=== PATIENT | male | born 1995 ===

== ENCOUNTER 2017-03-01 11:13 | Emergency (ER) | payer OTHER ==
[2017-03-01 11:20] VITALS: BMI 25.8
[2017-03-01 11:23] VITALS: TEMP 98.2; O2SAT 100
--- NOTE | 2017-03-01 11:35 | ED PDOC ---
Arrival/HPI - General Chief Complaint: Abnormal Skin Integrity Time Seen by Provider: 03/01/17 11:30 Historian: Patient - History of Present Illness Narrative History of Present Illness (Text): 03/01/17 11:32 21-year-old male presents today with a one-week history of right axillary abscess. Patient was seen by the primary care physician and was given cephalexin and a cleansed a few days ago. Patient followed up with the primary care physician again today and then was given a referral to a functional tester. When the functional tester did not take the patient's insurance he was advised to come to the emergency room for evaluation. Patient states he has prior history of abscess. Patient states last time it was in the left axilla. He denies fevers or chills. No medications have been taken for pain at home. He denies numbness weakness or tingling in the extremity. Patient describes the pain as 8 out of 10 throbbing pain localized to the large abscess. No other complaints Past Medical History - Provider Review Nursing Documentation Reviewed: Yes - Travel History Have you recently traveled outside [place] w/in the past 3 mons?: No - Psychiatric Hx Substance Use: No - Anesthesia Hx Anesthesia: No Family/Social History - Physician Review Nursing Documentation Reviewed: Yes Family/Social History: Unknown Family HX Smoking Status: Never Smoked Hx Alcohol Use: No Hx Substance Use: No Allergies/Home Meds Allergies/Adverse Reactions: Allergies No Known Allergies Allergy (Verified 03/01/17 11:20) Review of Systems - Review of Systems Constitutional: absent: Fatigue, Fevers Respiratory: absent: SOB, Cough Cardiovascular: absent: Chest Pain, Palpitations Gastrointestinal: absent: Abdominal Pain, Nausea, Vomiting Genitourinary Male: absent: Dysuria, Frequency, Hematuria Musculoskeletal: absent: Back Pain, Neck Pain Skin: Abscess Neurological: absent: Headache, Dizziness Physical Exam Vital Signs Reviewed: Yes Vital Signs Temp Pulse Resp BP Pulse Ox 03/01/17 12:17 79 18 104/69 100 03/01/17 11:22 98.2 F 86 17 102/68 100 Temperature: Afebrile Blood Pressure: Normal Pulse: Regular Respiratory Rate: Normal Appearance: Positive for: Well-Appearing, Non-Toxic, Comfortable Pain Distress: None Mental Status: Positive for: Alert and Oriented X 3 - Systems Exam Head: Present: Atraumatic Neck: Present: Normal Range of Motion Respiratory/Chest: Present: Clear to Auscultation, Good Air Exchange. No: Respiratory Distress, Accessory Muscle Use Cardiovascular: Present: Regular Rate and Rhythm, Normal S1, S2. No: Murmurs Breast/Axillary: Present: Erythema, Fluctuance, Tender to Palpation (Right axilla: There is a large 3 cm round erythematous tender fluctuant mass noted. There is surrounding induration.). No: Axillary Lymphad Upper Extremity: Present: Normal ROM Neurological: Present: GCS=15, Speech Normal Skin: Present: Warm, Dry, Normal Color Psychiatric: Present: Alert Medical Decision Making ED Course and Treatment: 03/01/17 11:34 Patient is nontoxic well-appearing in no distress. Vital signs are stable. pt with 1 week history of right axillary abscess Motrin po Bactrim DS p.o. I&D performed Patient was advised to use warm compresses warm soaks return to the emergency room in 2 days for packing removal. return immediately if symptoms worsen persist or if new symptoms develop. Patient was advised to follow-up with the surgeon. Patient verbalizes understanding of discharge instructions and need for immediate followup. Impression: Abscess, axilla Motrin one tablet every 6 hours as needed for pain Bactrim DS: One tablet twice daily x7 days Warm compresses frequently Return in 2 days for packing removal and wound check Follow-up with a surgeon within the next 2 days Return immediately if symptoms worsen persist or if new symptoms develop: High fevers, increasing pain, increasing redness, swelling or if any other concerning symptoms develop. - Medication Orders Current Medication Orders: Discontinued Medications Lidocaine HCl (Lidocaine 1% (20ml)) Confirm Administered Dose 20 ml .ROUTE .[facility] ONE Stop: 03/01/17 12:09 Procedures - Incision and Drainage Site: right axilla Blade Size: 11 I & D Procedure: sterile drapes applied, gauze wick placed Progress: right axilla; 3cm abscess 3cc of 1% lidocaine injected locally using sterile technique; adequate anesthesia; small incision made over central fluctuance; + small amount of purulent discharge released; wound explored for loculations, 1/4 packing placed. dressing applied. pt tolerated procedure well; no complications. Disposition/Present on Arrival - Present on Arrival Any Indicators Present on Arrival: No History of DVT/PE: No History of Uncontrolled Diabetes: No Urinary Catheter: No History of Decub. Ulcer: No History Surgical Site Infection Following: None - Disposition Have Diagnosis and Disposition been Completed?: Yes Diagnosis: Abscess, axilla Disposition: HOME/ ROUTINE Disposition Time: 11:36 Patient Plan: Discharge Patient Problems: Current Active Problems Problem Status Onset Abscess, axilla Acute Condition: GOOD Discharge Instructions (ExitCare): Abscess (ED) Additional Instructions: Motrin one tablet every 6 hours as needed for pain Bactrim DS: One tablet twice daily x7 days Warm compresses frequently Return in 2 days for packing removal and wound check Follow-up with a surgeon within the next 2 days Return immediately if symptoms worsen persist or if new symptoms develop: High fevers, increasing pain, increasing redness, swelling or if any other concerning symptoms develop. Prescriptions: Ibuprofen [Motrin] 600 mg PO Q6H PRN #20 tab PRN Reason: pain/fever reduction Sulfamethoxazole/Trimethoprim [Bactrim DS 800 mg-160 mg] 1 tab PO BID #14 tab Referrals: Jeremiah Jewell MD [Medical Doctor] - Follow up with primary Divya Fonseca MD [Staff Provider] - Follow up with primary [facility] [Outside] - Follow up with primary
[2017-03-01] MEDS ORDERED: Lidocaine 1% Inj (20ml) ONE (12:08)
[2017-03-01 12:17] VITALS: BP 104/69; PULSE 79; RESP 18
== END 2017-03-01 12:50 | disposition home or self-care (01) ==
LOC: ED 11:13
DX: L02.411 Cutaneous abscess of right axilla (principal)

== ENCOUNTER 2017-03-03 12:32 | Emergency (ER) | payer OTHER ==
[2017-03-03 12:32] VITALS: BMI 25.8
[2017-03-03 12:57] VITALS: TEMP 98.1
--- NOTE | 2017-03-03 13:29 | ED PDOC ---
Arrival/HPI - General Chief Complaint: Wound Check Time Seen by Provider: 03/03/17 13:10 Historian: Patient - History of Present Illness Narrative History of Present Illness (Text): 03/03/17 13:26 Collin Butterfield is a 21 year old male who presents to the emergency department for packing removal from right axillary abscess which was drained couple of day prior at [facility]. Patient was advised to present to emergency department for packing removal today. He denies any history of fever, or pain to area. Denies headache, dizziness, nausea, vomiting, diarrhea, urinary symptoms, or any other complaints at this time. Time/Duration: 1 week Symptom Onset: Gradual Symptom Course: Improving Severity Level: Mild Activities at Onset: Light Past Medical History - Provider Review Nursing Documentation Reviewed: Yes - Infectious Disease Hx of Infectious Diseases: None - Psychiatric Hx Substance Use: No - Anesthesia Hx Anesthesia: No Hx Anesthesia Reactions: No Hx Malignant Hyperthermia: No Family/Social History - Physician Review Nursing Documentation Reviewed: Yes Family/Social History: No Known Family HX Smoking Status: Never Smoked Hx Alcohol Use: No Hx Substance Use: No Allergies/Home Meds Allergies/Adverse Reactions: Allergies No Known Allergies Allergy (Verified 03/03/17 12:57) Review of Systems - Physician Review All systems were reviewed & negative as marked: Yes - Review of Systems Constitutional: Normal. absent: Fatigue, Fevers Respiratory: Normal. absent: SOB, Cough, Sputum Cardiovascular: Normal. absent: Chest Pain Gastrointestinal: Normal Skin: Abscess (right axillary abscess ) Neurological: Normal Psychiatric: Normal Physical Exam Vital Signs Reviewed: Yes Vital Signs Temp Pulse Resp BP Pulse Ox 03/03/17 12:53 98.1 F 98 H 20 110/82 99 Temperature: Afebrile Blood Pressure: Normal Pulse: Regular Respiratory Rate: Normal Appearance: Positive for: Well-Appearing, Non-Toxic, Comfortable Pain Distress: None Mental Status: Positive for: Alert and Oriented X 3 - Systems Exam Head: Present: Atraumatic, Normocephalic Pupils: Present: PERRL Conjunctiva: Present: Normal Respiratory/Chest: Present: Clear to Auscultation, Good Air Exchange. No: Respiratory Distress, Accessory Muscle Use Cardiovascular: Present: Regular Rate and Rhythm, Normal S1, S2. No: Murmurs Abdomen: Present: Normal Bowel Sounds. No: Tenderness, Distention, Peritoneal Signs Upper Extremity: Present: Other (2cm abscess to Right axillary area. there is 1 cm area of fluctuance and .5 cm non-flucutant mass below the packing. ). No: Cyanosis, Edema Lower Extremity: Present: Normal Inspection. No: Edema Neurological: Present: GCS=15, CN II-XII Intact, Speech Normal Skin: Present: Warm, Dry, Normal Color. No: Rashes Psychiatric: Present: Alert, Oriented x 3, Normal Insight, Normal Concentration Medical Decision Making ED Course and Treatment: 03/03/17 13:34 Impression: A 21 year old male presents to the emergency department for packing removal from drained abscess on right axillary area. Progress Notes: Packing removed with no pus drainage. The 1cm fluctuate area was incised with a #11 scalpel with minimal purulent discharge. No packing was placed. Patient was advised to continue on already prescribed antibiotics and follow up with PMD within few days. Advised to present to emergency department for worsening symptoms. - Scribe Statement The provider has reviewed the documentation as recorded by the Zoe Devlin Provider Attestation: All medical record entries made by the Zoe were at my direction and personally dictated by me. I have reviewed the chart and agree that the record accurately reflects my personal performance of the history, physical exam, medical decision making, and the department course for this patient. I have also personally directed, reviewed, and agree with the discharge instructions and disposition. Disposition/Present on Arrival - Present on Arrival Any Indicators Present on Arrival: No History of DVT/PE: No History of Uncontrolled Diabetes: No Urinary Catheter: No History of Decub. Ulcer: No History Surgical Site Infection Following: None - Disposition Have Diagnosis and Disposition been Completed?: Yes Diagnosis: Axillary abscess Disposition: HOME/ ROUTINE Disposition Time: 13:30 Patient Plan: Discharge Patient Problems: Current Active Problems Problem Status Onset Axillary abscess Acute Condition: IMPROVED Discharge Instructions (ExitCare): Abscess (ED) Additional Instructions: Mr Butterfield, thank you for letting us take care of you today. Your provider was Dr. Miose. You were treated for Axillary Abscess Wound Check and Incision and Drainage. The emergency medical care you received today was directed at your acute symptoms. If you were prescribed any medication, please fill it and take as directed. It may take several days for your symptoms to resolve. Return to the Emergency Department if your symptoms worsen, do not improve, or if you have any other problems. Please contact your doctor or call one of the physicians/clinics you have been referred to that are listed on the Patient Visit Information form that is included in your discharge packet. Bring any paperwork you were given at discharge with you along with any medications you are taking to your follow up visit. Our treatment cannot replace ongoing medical care by a primary care provider (PCP) outside of the emergency department. Thank you for allowing the [facility] team to be part of your care today. If you had an X-Ray or CT scan: A Radiologist will review the ED reading if any change in treatment is needed we will contact you. If you had a blood, urine, or wound culture: It will take several days for the results, if any change in treatment is needed we will contact you. If you had an STI test: It will take 48 hours for the results. Please call after 1 week if you have not heard back. Referrals: [phone], [Non-Staff] - Follow up with primary Forms: Air Visits Discharge (Setswana), WORK NOTE
[2017-03-03 18:45] VITALS: BP 106/74; PULSE 90; RESP 16; O2SAT 100
== END 2017-03-03 14:05 | disposition home or self-care (01) ==
LOC: ED 12:32
DX: L02.411 Cutaneous abscess of right axilla (principal)